=== PATIENT | female | born 1950 | race Caucasian/White ===

== ENCOUNTER → 2019-06-21 | Outpatient (CLI) | payer MEDICARE, BC ==
[~2019-06-21] MED LIST: AMLOPIDINE; ATORVASTATIN; BIRTH CONTROL; GLUCOPHAGE; LISINOPRIL
== END ==
LOC: MC.RAD 13:15
DX: Z12.31 Encounter for screening mammogram for malignant neoplasm of breast (principal)

== ENCOUNTER → 2020-06-23 | Outpatient (CLI) | payer MEDICARE, BC | LOC: MC.RAD 10:13 | DX: Z12.31 Encounter for screening mammogram for malignant neoplasm of breast (principal) ==

== ENCOUNTER 2020-08-24 11:03 | Outpatient (CLI) | payer MEDICARE, BC ==
[~2020-08-24] VITALS: Ht 157.5 cm; Wt 68.0 kg
[2020-08-24 11:52] VITALS: BP 138/73; PULSE 52; TEMP 97.9
[2020-08-24] MEDS ORDERED: TOPROL XL100 MG PO (14:32)
[2020-08-24] MEDS ORDERED: VOLTAREN GEL 1%1 TU TP (14:32)
[2020-08-24] MEDS ORDERED: ALDACTONE50 MG PO (14:33)
[2020-08-24] MEDS ORDERED: GLUCOPHAGE1000 MG PO (14:33)
[2020-08-24] MEDS ORDERED: ASPIRIN 81M81 MG/TA2 PO (14:33)
[2020-08-24] MEDS ORDERED: PRINIVIL40 MG PO (14:33)
[2020-08-24] MEDS ORDERED: PRIL40 PO (14:34)
[2020-08-24] MEDS ORDERED: PRAVACHOL 40MG40 MG PO (14:34)
[2020-08-24] MEDS ORDERED: ESTRACE 1MG1 MG/TAB PO (14:35)
[2020-08-24] MEDS ORDERED: CEQUA1 EACH OP (14:35)
[2020-08-24] MEDS ORDERED: NEURONTIN300 MG/CAP PO (14:35)
[2020-08-24] MEDS ORDERED: XANAX 0.5MG0.5 MG PO (14:36)
[2020-08-24] MEDS ORDERED: DESYREL DIVIDO150 M1 PO (14:36)
[2020-08-24] MEDS ORDERED: CALCIUM 600MG+D1 TAB PO (14:37)
[2020-08-24] MEDS ORDERED: STOOL SOFTENER100 M2 PO (14:37)
[2020-08-24] MEDS ORDERED: KRILL OIL 3001 EACH PO (14:37)
[2020-08-24] MEDS ORDERED: CELEXA 20MG20 MG/TAB PO (14:38)
[2020-08-24] MEDS ORDERED: CENTRUM SILVER1 CTB PO (14:38)
== END 2020-08-24 14:39 | disposition home or self-care (01) ==
LOC: EUO 11:03
DX: M81.0 Age-related osteoporosis without current pathological fracture (principal); Z79.1 Long term (current) use of non-steroidal anti-inflammatories (NSAID)
CPT/HCPCS: J3489

== ENCOUNTER → 2022-03-28 | Outpatient (CLI) | payer MEDICARE, BC ==
[~2022-03-28] MED LIST changes: +ALDACTONE50 MG PO; +ASPIRIN 81M81 MG/TA2 PO; +CALCIUM 600MG+D1 TAB PO; +CELEXA 20MG20 MG/TAB PO; +CENTRUM SILVER1 CTB PO; +CEQUA1 EACH OP; +DESYREL DIVIDO150 M1 PO; +ESTRACE 1MG1 MG/TAB PO; +GLUCOPHAGE1000 MG PO; +KRILL OIL 3001 EACH PO; +NEURONTIN300 MG/CAP PO; +PRAVACHOL 40MG40 MG PO; +PRIL40 PO; +PRINIVIL40 MG PO; +STOOL SOFTENER100 M2 PO; +TOPROL XL100 MG PO; +VOLTAREN GEL 1%1 TU TP; +XANAX 0.5MG0.5 MG PO
[2022-03-28 15:08] VITALS: BP 125/76; PULSE 65; TEMP 98.1
== END ==
LOC: EUO 14:34
DX: M81.0 Age-related osteoporosis without current pathological fracture (principal)
CPT/HCPCS: J3489

== ENCOUNTER → 2024-03-02 | Outpatient (CLI) | payer MEDICARE, BC | LOC: COL.RAD 14:25 | DX: S72.422A Displaced fracture of lateral condyle of left femur, initial encounter for closed fracture (principal); M71.22 Synovial cyst of popliteal space [Baker], left knee ==